=== PATIENT | female | born 1990 | race Caucasian/White ===

== ENCOUNTER 2019-12-07 01:28 | Emergency (ER) | payer BC, OTHER ==
[~2019-12-07] VITALS: Ht 160 cm; Wt 52.0 kg
[2019-12-07 01:31] VITALS: BP 130/90
--- NOTE | 2019-12-07 01:48 | NUR ---
THIS IS A 29 YO FEMALE COMING IN FOR RIGHT SIDED LEG NUMBNESS AND TINGLING AFTER A FALL. PATIENT STATES SHE DRANK "QUITE A BIT OF ALCOHOL" TONIGHT, DOES NOT REMEMBER THE FALL. DENIES ANY HEAD OR NECK PAIN, UNSURE IF SHE HIT HER HEAD. NO BRUISING OR TENDERNESS NOTED ON HEAD OR NECK. CSM IN TACT IN AFFECTED EXTREMITY.
--- NOTE | 2019-12-07 02:41 | NUR ---
REPORT GIVEN TO YAMILA LUCAS. PLAN OF CARE DISCUSSED
--- NOTE | 2019-12-07 02:42 | NUR ---
REPORT FROM CEDRICK DRISCOLL ASSUMING CARE OF PT
[2019-12-07] MEDS ORDERED: METHOCARBAMOL 750 MG TABLET ONE (02:47)
[2019-12-07] MEDS ORDERED: METHOCARBAMOL 750 MG TABLET PO ONE (03:00)
--- NOTE | 2019-12-07 03:11 | NUR ---
PT MEDICATED PER MAR, PROVIDED CRUTCHES AND DEMO ABILITY TO AMBULATE WITH THEM SAFELY. PT LEFT WITH MOTHER AMB W/O DIFFICULTY
== END 2019-12-07 03:13 | disposition home or self-care (01) ==
LOC: ED 03:00
DX: T21.19XA Burn of first degree of other site of trunk, initial encounter (principal); M54.31 Sciatica, right side; F10.129 Alcohol abuse with intoxication, unspecified; W18.39XA Other fall on same level, initial encounter; Y93.89 Activity, other specified; Y92.098 Other place in other non-institutional residence as the place of occurrence of the external cause; Y99.8 Other external cause status; Y90.9 Presence of alcohol in blood, level not specified
CPT/HCPCS: 73502; 99283; J7512

== ENCOUNTER 2021-01-27 18:51 | Emergency (ER) | payer OTHER ==
[~2021-01-27] VITALS: Ht 162.6 cm; Wt 51.0 kg
[2021-01-27 18:58] VITALS: BP 127/88
--- NOTE | 2021-01-27 19:40 | NUR ---
TRANSISTOR TESTER PER MAR.
== END 2021-01-27 20:02 | disposition home or self-care (01) ==
LOC: ED 19:21
DX: F41.1 Generalized anxiety disorder (principal); F17.200 Nicotine dependence, unspecified, uncomplicated
CPT/HCPCS: 99283; Q0177